=== PATIENT | female | born 1995 ===

== ENCOUNTER 2018-08-13 05:57 | Inpatient (IN) | payer OTHER ==
[~2018-08-13] VITALS: Ht 152.4 cm; Wt 5.0 kg
[~2018-08-13 05:57] MED LIST: AMOX1TAB12 PO; CEPHALEXIN500 MG; CIPRO500 MG; DIFLUCAN PO; URETRON DS1 TAB PO
--- NOTE | 2018-08-13 06:14 | NUR ---
PTE SE RECIBE POR ABDOMINAL PAIN CLEM DOLOR DE EJ CLEM Y DIARRHEA REFIERE PTE.
--- NOTE | 2018-08-13 07:32 | NUR ---
PACIENTE ALERTA Y ORIENTADA X3. EN JAZZ CON BARANDAS ELEVADAS. MANEJADA POR MISS. MORE QUIEN ORIENTA A PACIENTE SOBRE TX Y PROCEDIMIENTO A REALIZAR Y REFIERE ENTENDER. REALIZA MUESTRAS DE LABORATORIO BAJO MEDIDAS ASEPTICAS. CANALIZACION PATENTE Y PRAKASH DE EDEMA Y ERITEMA. SE ADMINISTRA MEDICAMENTOS KASEY ORDEN MEDICA. SE MANTIENE BAJO OBSERVACION POR CAMBIOS SIGNIFICATIVOS. PENIDENTE ADMINISTRAR POTASIO QUE SE JEAN CLAUDE A BUSCAR PORQUE NO HAY EN LA PIXY.
[2018-08-15] MEDS ORDERED: FLUCONAZOLE150 MG PO (10:50)
== END 2018-08-17 20:25 | DRG 690 ==
LOC: ER 05:57 → MEDI 20:03
PROVIDERS: ADMIT Internal Medicine
PROC: BW21Y0Z Computerized Tomography (CT Scan) of Abdomen and Pelvis using Other Contrast, Unenhanced and Enhanced (ICD-10-PCS; principal; 2018-08-13)
DX: N39.0 Urinary tract infection, site not specified (principal); K52.89 Other specified noninfective gastroenteritis and colitis; D72.828 Other elevated white blood cell count; B96.20 Unspecified Escherichia coli [E. coli] as the cause of diseases classified elsewhere